=== PATIENT | female | born 1985 | race Caucasian/White ===

== ENCOUNTER 2018-07-09 11:20 | Inpatient (IN) | payer MEDICAID, OTHER ==
[~2018-07-09 11:20] MED LIST: ACETAMINOPHEN 1,000 MG/100 ML INJ IV ONE; BUPIV. HCL 0.25% (2.5MG/ML)/EPI. (1:200,000) PF 30 ML VIAL IJ ONE; DEXAMETHASONE SOD PHOS 4 MG/ML VIAL ONE; FENTANYL CITRATE/PF 250 MCG/5 ML INJ. ONE; LACTATED RINGERS 1,000 ML IV.SOLN IV ONE; LIDOCAINE HCL 2% PF 100MG/5ML VIAL IJ ONE; MIDAZOLAM HCL 2 MG/2 ML VIAL ONE; ONDANSETRON HCL/PF 4 MG/ 2ML VIAL ONE; PROMETHAZINE HCL 25 MG/ML VIAL ONE; PROPOFOL 200 MG/20 ML VIAL IV ONE; ROCURONIUM BROMIDE 10 MG/ML 5ML VIAL ONE; SODIUM CHLORIDE IRRIG SOLUTION 3,000 ML IRRIG.SOLN IR ONE; SUCCINYLCHOLINE CHLORIDE 20 MG/ML 10ML VIAL ONE; SUGAMMADEX SODIUM 200 MG/2 ML VIAL IV ONE; ceFAZolin SODIUM 1 GM VIAL ONE; fentaNYL CITRATE/PF 100 MCG/2 ML INJ. ONE
[2018-07-09] MEDS ORDERED: LEVALBUTEROL HCL 1.25 MG/3 ML AMPUL.NEB NEB ONE (11:57)
[2018-07-09] MEDS ORDERED: LACTATED RINGERS 1,000 ML IV ONE (11:57)
[2018-07-09] MEDS ORDERED: FAMOTIDINE 20 MG/2 ML VIAL ONE ×3 (11:58→14:44)
[2018-07-09] MEDS ORDERED: SCOPOLAMINE HYDROBROMIDE 1.5MG/72HR PATCH TD ONE ×3 (11:58→14:44)
[2018-07-09] MEDS ORDERED: 0.9 % SODIUM CHLORIDE 50 ML IV ONE (13:39)
[2018-07-09] MEDS ORDERED: PROMETHAZINE HCL 25 MG/ML VIAL ONE (17:33)
[2018-07-09] MEDS ORDERED: fentaNYL CITRATE/PF 100 MCG/2 ML INJ. ONE (17:33)
[2018-07-09] MEDS ORDERED: HYDROmorphone HCL 2 MG TABLET PO PRN (18:50)
--- NOTE | 2018-07-09 19:02 | History and Physical Report ---
History of Present Illnes - History of Present Illness Reason for Visit: Morbid obesity History of Present Illness: This is a 32 year old female who has dealt with morbid obesity for much of her life. She has tried diet, exercise and medication for weight loss, however she has not been able to consistently lose weight. She has stopped smoking in preparation for the gastric sleeve that she had done today. She did not have any intraoperative complications and is admitted for pain control, advancement of diet and further teaching and mobilization. - Past Medical History Cardiac: HTN Gastrointestinal: GERD Psych: Other (OCD) Musculoskeletal: Chronic low back pain, Osteoarthritis Endocrine: obesity, Other (PCOS) - Past Surgical History Past Surgical History: Tubal Ligation, Tonsillectomy, Other (Carpal tunnel release) - Past Social History Smoke: Quit (3 weeks ago) Alcohol: None Drugs: None Lives: With Family Domestic Violence: Negative - Health Maintenance Health Maintenance: Cholesterol Influenza Vaccine: Current for this Influenza Season Pneumonia Vaccine: Yes Resuscitation Status: Resusciation Status Resuscitation Status Full Code - Unable to Obtain History Unable to Obtain: No Review of Systems - Review of Systems Constitutional: negative: Fever Eyes: negative: pain ENT: negative: Ear Pain Respiratory: negative: Cough Cardiovascular: negative: Chest Pain, Palpitations Gastrointestinal: Nausea, Abdominal Pain (epigastric). negative: Vomiting Genitourinary: negative: Dysuria, Frequency Musculoskeletal: negative: Neck Pain Skin: negative: Rash, Lesions Neurological: Confusion (still with effects of anesthesia present) Exam - Exam Vital Signs: Vital Signs (72 hours) 07/09/18 18:25 Temperature 97.6 F Pulse Rate [ 85 Left] Respiratory 18 Rate Blood Pressure 167/108 [Left Arm] O2 Sat by Pulse 93 Oximetry General: Oriented to Person, Morbidly Obese HEENT: Atraumatic Neck: No: Stridor, Rigidity Lungs: Clear to auscultation Cardiovascular: Regular rate Murmur: No: Systolic Murmur, Diastolic Murmur Abdomen: Normal bowel sounds, Other (Tender in the epigastrium) Genitourinary: No: Other Male Genitourinary: No: Other Female Genitourinary: No: Other Integumentary: Normal, [place], Warm, Dry Extremities: No clubbing, No cyanosis Neurological: Other (Very sleepy) Psych/Mental Status: Other (Sleepy) Assessment/Plan - Assessment/Plan (1) Morbid obesity Status: Acute Current Visit: Yes Assessment: S/P gastric sleeve (2) Hypertension Status: Acute Current Visit: Yes Qualifiers: Hypertension type: essential hypertension Qualified Code(s): I10 - Essential (primary) hypertension Assessment: Currently on no medications Plan: BP is transiently elevated. Will continue to follow. May need to start antihypertensive if BP does not come down (3) GERD (gastroesophageal reflux disease) Status: Acute Current Visit: Yes Assessment: Continue PPI (4) OCD (obsessive compulsive disorder) Status: Acute Current Visit: Yes Assessment: Currently on no medications VTE Assessment - RISK FACTOR SCORE VTE RISK FACTOR SCORES: OBESITY, MAJOR SURGERY/ANESTHESIA TIME > 1 HOUR (On Lovenox and SCDs)
[2018-07-09 20:27] VITALS: BMI 52.2
[2018-07-09] MEDS: CEFAZOLIN SODIUM/DEXTROSE,ISO 1 GM/50 ML PIGGYBACK IV SCH (21:43)
[2018-07-09] MEDS: ENOXAPARIN SODIUM 40 MG/0.4 ML DISP.SYRIN SQ SCH (21:43)
[2018-07-09] MEDS: 0.9 % SODIUM CHLORIDE 1,000 ML IV SCH (21:43)
[2018-07-09] MEDS: HYDROCODON-ACETAMIN 7.5-325/15ML SOLN UD CUP PO PRN (23:56)
[2018-07-09] MEDS: ONDANSETRON HCL/PF 4 MG/ 2ML VIAL IVP PRN (23:56)
[2018-07-10] MEDS: 0.9 % SODIUM CHLORIDE 1,000 ML IV SCH ×3 (04:53→21:18)
[2018-07-10] MEDS: CEFAZOLIN SODIUM/DEXTROSE,ISO 1 GM/50 ML PIGGYBACK IV SCH (06:21)
[2018-07-10] MEDS: PANTOPRAZOLE SODIUM 40 MG TABLET.DR PO SCH (06:21)
[2018-07-10] MEDS: HYDROCODON-ACETAMIN 7.5-325/15ML SOLN UD CUP PO PRN (08:51)
--- NOTE | 2018-07-10 11:43 | Inpatient Progress Note ---
Subjective - Required Recertification Statement I anticipate X number of days because-include discharge plan: 1 - Review of Systems General: Denies: Chills, Night Sweats HEENT: Denies: Head Aches Pulmonary: Denies: Dyspnea, Cough Cardiovascular: Denies: Chest Pain Gastrointestinal: Nausea. Denies: Vomiting Genitourinary: Denies: Dysuria Musculoskeletal: Denies: Neck Pain, Shoulder Pain Neurological: Denies: Weakness Objective - Exam Vitals and I&O: Vital Signs Temp 99.6 F 07/10/18 09:29 Pulse 96 H 07/10/18 09:29 Resp 20 07/10/18 09:29 BP 115/93 07/10/18 09:29 Pulse Ox 93 07/10/18 09:29 Intake & Output 07/09/18 07/09/18 07/10/18 11:59 23:59 11:59 Intake Total 2500 Output Total 500 750 Balance -500 1750 Weight 138 kg Intake: IV 2275 Right Antecubital 2275 Oral 225 Output: Urine 500 750 Other: Voiding Method Toilet Toilet # Voids 1 General: Alert, Oriented to Person, Oriented to Place, Oriented to Time HEENT: Atraumatic, PERRLA, EOMI Neck: Supple, No JVD Lungs: Clear to auscultation, Normal air movement, Speaks full Sentences Cardiovascular: Regular rate, Normal S1, Normal S2 Abdomen: Normal bowel sounds, Soft, Other (Incisions are all dry. A very small amount of dried blood is noted on the most superior wound.) Extremities: No clubbing, No cyanosis, No edema Skin: Normal, [place], Warm, Dry Neurological: Normal gait, Normal speech Psych/Mental Status: Mental status NL Assessment/Plan - Assessment/Plan (1) Morbid obesity Status: Acute Current Visit: Yes Assessment: S/P Gastric sleeve (2) Hypertension Status: Acute Current Visit: Yes Qualifiers: Hypertension type: essential hypertension Qualified Code(s): I10 - Essential (primary) hypertension Assessment: Well controlled (3) GERD (gastroesophageal reflux disease) Status: Acute Current Visit: Yes Assessment: Continue PPI (4) OCD (obsessive compulsive disorder) Status: Acute Current Visit: Yes
[2018-07-10] MEDS: ONDANSETRON HCL/PF 4 MG/ 2ML VIAL IVP PRN (16:18)
[2018-07-10] MEDS: ENOXAPARIN SODIUM 40 MG/0.4 ML DISP.SYRIN SQ SCH (21:18)
[2018-07-11] MEDS: HYDROCODON-ACETAMIN 7.5-325/15ML SOLN UD CUP PO PRN ×2 (02:52→08:34)
[2018-07-11] MEDS: ONDANSETRON HCL/PF 4 MG/ 2ML VIAL IVP PRN ×2 (02:53→08:34)
[2018-07-11] MEDS: 0.9 % SODIUM CHLORIDE 1,000 ML IV SCH (04:14)
[2018-07-11] MEDS: PANTOPRAZOLE SODIUM 40 MG TABLET.DR PO SCH (06:21)
[2018-07-11 07:32] LABS: MONOCYTES % 6.1 % (0.0-11.0)
[2018-07-11 07:33] LABS: BASOPHILS % 0.4 (0.0-1.5); EOSINOPHILS % 0.9 % (0.0-6.8)
[2018-07-11 08:47] LABS: eGFR (Non-African) > 60
[2018-07-11 09:28] VITALS: BP 166/89
--- NOTE | 2018-07-11 12:08 | Discharge Summary ---
Discharge Summary - Discharge Sumary History of Present Illness: This is a 32 year old female who has dealt with morbid obesity for much of her life. She has tried diet, exercise and medication for weight loss, however she has not been able to consistently lose weight. She has stopped smoking in preparation for the gastric sleeve that she had done today. She did not have any intraoperative complications and is admitted for pain control, advancement of diet and further teaching and mobilization. Condition at Discharge: Stable Home Medications: Ambulatory Orders Medication Instructions Recorded Hydrocodone/Acetaminophen [Hycet 15 ml PO Q4H PRN #300 ml 07/10/18 7.5 mg-325 mg/15 ml Soln] Ondansetron HCl Rapdis [Zofran Odt] 4 mg PO Q6 PRN #20 tab 07/10/18 Omeprazole 20 mg PO 0700 07/11/18 Consultations this Visit: None Procedures this Visit: Other (S/P gastric sleeve ) Allergies/Adverse Reactions: Allergies Allergy/AdvReac Type Severity Reaction Status Date / Time No Known Allergies Allergy Verified 07/09/18 23:32 Discharge Summary: Patient was started on routine postoperative care. Patient had some mild nausea and required a few dose of Zofran which patient tolerated well. Patient has done well transitioning from IV to oral pain medication. She has been ambulating frequently, using Incentive spirometer. Patient otherwise had an uneventful postoperative course. Patient is discharging to home with family support. Hospital Course: Patient received IV fluids until able to tolerate oral h ydration. Patient transitioned from IV pain meds to oral. Frequent ambulation and frequent use of incentive spirometer. - Final Diagnosis (1) S/P gastric surgery Problems: Incision sites without redness/erythema, ambulated frequently, SCDs while in bed, and Lovenox to prevent DVT, IS used to prevent resp. infection, transition from IV to oral meds, follow strict gastric sleeve diet Right or Left: Right (3) Hypertension Problems: Patient state that she does not have high blood pressure anymore- quit taking meds a long time ago Right or Left: Right (4) Morbid obesity Problems: S/P gastric sleeve Right or Left: Right (5) OCD (obsessive compulsive disorder) Problems: Patient states controlled without meds Right or Left: Right
== END 2018-07-11 09:20 | disposition home or self-care (01) | DRG 641 ==
LOC: OPSURG 11:20 → SOUTH 11:21 → UNDOADMIN 18:44 → UNDODISIN 07-11 09:20
PROVIDERS: ADMIT Nurse Practitioner Family; ATTEND Nurse Practitioner Family
DX: E66.01 Morbid (severe) obesity due to excess calories (principal); Z68.43 Body mass index [BMI] 50.0-59.9, adult; I10 Essential (primary) hypertension; K21.9 Gastro-esophageal reflux disease without esophagitis; F42.2 Mixed obsessional thoughts and acts; Z98.84 Bariatric surgery status
CPT/HCPCS: 80053; 81025; 85025; 99231; 99232; 99238; J1650; J2405; J2550; J3010; J7614; S0028; A9270-GY; J7030; J7120